=== PATIENT | female | born 1960 | race African-American/Black ===

== ENCOUNTER 2017-06-03 14:44 | Observation (INO) | payer OTHER ==
--- NOTE | 2017-06-03 15:16 | PDOC ---
History of Present Illness - General Chief Complaint: Syncope/Near Syncope Stated Complaint: Syncope/Near Syncope Time Seen by Provider: 06/03/17 14:54 History Source: Patient Exam Limitations: No Limitations - History of Present Illness Initial Comments: 06/03/17 15:56 Patient is a 57-year-old female with a past medical history of hyperlipidemia, GERD, insulin-dependent type 2 diabetes, coronary artery disease status post cardiac stenting in 2009 on Plavix who presents to the emergency department today after having a syncopal episode at her doctor's office. Patient states that she has had a sore throat since Friday. She finally went to see her doctor today when she got up to walk into the exam room she passed out. She was found to be hypotensive at that time approximately 78/50. Admits to fatigue, weakness. Fall was witnessed she did not hit her head. She denies headache, neck pain. Denies chest pain, palpitations, fevers, chills, frequency, urgency, hematuria, nausea, vomiting and diarrhea. Past History - Travel Traveled outside of the country in the last 30 days: Yes - Past Medical History Allergies/Adverse Reactions: Allergies Allergy/AdvReac Type Severity Reaction Status Date / Time lidocaine [Lidocaine] Allergy Verified 06/03/17 15:37 sumatriptan [From Imitrex] Allergy Verified 06/03/17 15:37 sumatriptan succinate Allergy Verified 06/03/17 15:37 [From Imitrex] novacaine Allergy Uncoded 06/03/17 15:37 Home Medications: Ambulatory Orders Atorvastatin Ca [Lipitor] 40 mg PO HS 06/03/17 Clonazepam [Klonopin -] 0.5 mg PO BID 06/03/17 Clopidogrel Bisulfate [Plavix -] 75 mg PO DAILY 06/03/17 Famotidine [Pepcid -] 20 mg PO BID 06/03/17 Fluticasone Prop 0.05% Nasal [Flonase -] 1 - 2 spray NS BID 06/03/17 Furosemide [Lasix] 20 mg PO DAILY 06/03/17 Insulin Glargine,Hum.rec.anlog [Lantus Solostar PEN -] 60 units SQ HS 06/03/17 Insulin Glulisine [Apidra Solostar] 25 unit SQ TID 06/03/17 Loratadine [Claritin] 10 mg PO DAILY 06/03/17 Montelukast Na [Singulair -] 10 mg PO HS 06/03/17 Ramipril [Altace] 5 mg PO DAILY 06/03/17 Sitagliptin Phosphate [Januvia] 100 mg PO DAILY 06/03/17 Trazodone HCl [Desyrel -] 50 mg PO HS 06/03/17 Cefuroxime Axetil [Ceftin -] 250 mg PO BID #10 tablet 06/04/17 Cardiac Disorders: Yes (cad) Diabetes: Yes (type II, IDDM) HTN: Yes - Surgical History Cardiac Surgery: Yes (cardiac stent 2009) - Psycho/Social/Smoking Cessation Hx Anxiety: Yes Suicidal Ideation: No Smoking Status: No Smoking History: Current every day smoker Number of Cigarettes Smoked Daily: 4 Information on smoking cessation initiated: No 'Breaking Loose' booklet given: 03/04/13 Hx Alcohol Use: Yes Drug/Substance Use Hx: Yes Substance Use Type: Alcohol, Marijuana Hx Substance Use Treatment: Yes (2001, [facility]) Review of Systems - Review of Systems Able to Perform ROS?: Yes Comments:: 06/03/17 15:59 CONSTITUTIONAL: Absent: fever, chills, diaphoresis, generalized weakness, malaise, loss of appetite HEENT: Absent: rhinorrhea, nasal congestion, throat pain, throat swelling, difficulty swallowing, mouth swelling, ear pain, eye pain, visual Changes CARDIOVASCULAR: Positive: Syncope, lightheadedness Absent: chest pain, palpitations, irregular heart rate, peripheral edema RESPIRATORY: Absent: cough, shortness of breath, dyspnea with exertion, orthopnea, wheezing, stridor, hemoptysis GASTROINTESTINAL: Absent: abdominal pain, abdominal distension, nausea, vomiting, diarrhea, constipation, melena, hematochezia GENITOURINARY: Absent: dysuria, frequency, urgency, hesitancy, hematuria, flank pain, genital pain MUSCULOSKELETAL: Absent: myalgia, arthralgia, joint swelling SKIN: Absent: rash, itching, pallor HEMATOLOGIC/IMMUNOLOGIC: Absent: easy bleeding, easy bruising, lymphadenopathy, frequent infections ENDOCRINE: Absent: unexplained weight gain, unexplained weight loss, heat intolerance, cold intolerance NEUROLOGIC: Absent: headache, focal weakness or paresthesias, dizziness, unsteady gait, seizure, mental status changes, bladder or bowel incontinence PSYCHIATRIC: Absent: anxiety, depression, suicidal or homicidal ideation, hallucinations. Is the patient limited Kinyarwanda proficient: No *Physical Exam - Vital Signs Last Vital Signs Temp Pulse Resp BP Pulse Ox 98 F 103 H 18 131/78 98 06/03/17 14:47 06/03/17 14:47 06/03/17 14:47 06/03/17 14:47 06/03/17 14:47 - Physical Exam Comments: 06/03/17 17:56 GENERAL: Well developed, well nourished laying on hospital bed. Awake alert and oriented x3. No acute distress, breathing easily. BP is 98/64 pulse 92 on monitor. HEENT: Normocephalic, atraumatic. PERRLA, EOMI. No conjunctival pallor. Sclera are non- icteric. Moist mucous membranes. Oropharynx with patchy exudates on the posterior pharynx and upper soft palate. TM's b/l are dull with a diminished cone of light. NECK: Supple. Full ROM. No JVD. Carotid pulses 2+ and symmetric, without bruits. No thyromegaly. No lymphadenopathy. CARDIOVASCULAR: Tachycardic, regular rhythm. No murmurs, rubs, or gallops. Distal pulses are 2+ and symmetric. PULMONARY: No evidence of respiratory distress. Lungs clear to auscultation bilaterally. No wheezing, rales or rhonchi. ABDOMINAL: Soft. Non-tender. Non-distended. No rebound or guarding. No organomegaly. Normoactive bowel sounds. MUSCULOSKELETAL Normal range of motion at all joints. No bony deformities or tenderness. No CVA tenderness. EXTREMITIES: No cyanosis. No clubbing. No edema. No calf tenderness. SKIN: Warm and dry. Normal capillary refill. No rashes. No jaundice. NEUROLOGICAL: Alert, awake, appropriate. Cranial nerves 2-12 intact. No deficits to light touch and temperature in face, upper extremities and lower extremities. No motor deficits in the in face, upper extremities and lower extremities. Normoreflexic in the upper and lower extremities. Normal speech. Toes are down- going bilaterally. Gait is normal without ataxia. PSYCHIATRIC: Cooperative. Good eye contact. Appropriate mood and affect. ED Treatment Course - LABORATORY CBC & Chemistry Diagram: 06/04/17 05:35 06/04/17 05:35 Medical Decision Making - Medical Decision Making 06/03/17 16:30 Patient is a 57-year-old female with a past medical history of hyperlipidemia, GERD, insulin-dependent type 2 diabetes, coronary artery disease status post cardiac stenting in 2009 on Plavix who presents to the emergency department today after having a syncopal episode at her doctor's office. Possible septic picture as pt states she has had sore throat for 5 days. Will start septic work up at this time. Pt. is denying chest pain, shortness of breath , abdominal pain , n/v/d. 1. CBC, CMP, Trop, lactic, blood cultures, UA, UC 2. Fluids 3. EKG 4. Re-evaluate 06/03/17 16:59 CBC shows WBC of 11. Lactic acid 2.2, UA positive for leuks, glucose and protein. Trop negative. Given hypotension and syncopal episode, will admit to obs [facility] for blood pressure monitoring and septic picture. Will give rocephin now. Will admit to [facility] 06/03/17 17:18 [facility] accepts the pt. *DC/Admit/Observation/Transfer Diagnosis at time of Disposition: Elevated lactic acid level UTI (urinary tract infection) Qualifiers: Urinary tract infection type: acute cystitis Hematuria presence: without hematuria Qualified Code(s): N30.00 - Acute cystitis without hematuria Syncope Qualifiers: Syncope type: unspecified Qualified Code(s): R55 - Syncope and collapse - Discharge Dispostion Disposition: HOME Condition at time of disposition: Stable Admit: Yes - Prescriptions - Referrals
[2017-06-03 15:38] LABS: URINE APPEARANCE CLEAR; URINE BILIRUBIN NEGATIVE (NEGATIVE); URINE BLOOD NEGATIVE (NEGATIVE); URINE COLOR YELLOW; URINE GLUCOSE (UA) 3+ (NEGATIVE); URINE KETONE NEGATIVE (NEGATIVE); URINE NITRITE NEGATIVE (NEGATIVE); URINE UROBILINOGEN 4.0 E.U/dl mg/dL (0.2-1.0)
[2017-06-03] MEDS ORDERED: SODIUM CHLORIDE 1,000 ML IV STA (15:43)
[2017-06-03 15:45] LABS: URINE LEUK ESTERASE 1+ (NEGATIVE); URINE PROTEIN 2+ (NEGATIVE)
[2017-06-03 15:56] LABS: URINE HYALINE CAST 43 /lpf; URINE MUCUS FEW; URINE RBC 1 /hpf (0-3); URINE WBC 21 /hpf (3-5)
[2017-06-03 16:10] LABS: VENOUS BLOOD GAS HCO3 30.4 meq/L (19-25); VENOUS PH 7.33 (7.32-7.42)
--- NOTE | 2017-06-03 16:41 | PDOC ---
Attending Attestation - Resident Resident Name: Ines Marcum - ED Attending Attestation I have performed the following: I have examined & evaluated the patient, The case was reviewed & discussed with the resident, I agree w/resident's findings & plan, Exceptions are as noted - HPI HPI: 06/03/17 19:08 57y F hx of HL, GERD, DM2, CAD s/p stent x 1 in 2009 presents with syncopal episode in setting of recent URI/Sore throat since friday. Pt syncopized when ambulating to the exam room in the doctors office, pt recalls no headache, cp, sob, palpitations, back pain, abd pain. Pt notes she has not been eating/ drinking much for the past 4 days, had ~1 bottle of water in 24 hrs and only approx 2 cans of chicken soup over the past few days. on exam pt had dry mucus membranes. abd soft nontender, posterior pharynx mildly erhtmeadous exam otherwise unremarkable pt on cardiac montior labs reviewed lactic acid slightly elevated to 2.2 suspect dehdration will placed in observation in telemetry - Physicial Exam PE: 06/04/17 08:20 see above - Medical Decision Making 06/04/17 08:20 see above
[2017-06-03 16:42] LABS: INR 0.98 (0.82-1.09); PROTHROMBIN TIME (PATIENT) 10.8 SEC (9.98-11.88)
[2017-06-03 16:44] LABS: ACTIVATED PTT 27.4 SECONDS (26.9-34.4)
[2017-06-03 16:45] LABS: BASOPHIL 0.6 % (0-2.0); EOSINOPHIL 0.6 % (0-4.5); MCH 31.6 pg (25.7-33.7); MCHC 32.7 g/dl (32.0-36.0); MEAN CELL VOLUME 96.6 fl (80-96); MEAN PLT VOLUME 8.5 fl (7.5-11.1); NEUTROPHILS 70.5 % (42.8-82.8); PLATELET COUNT 221 K/MM3 (134-434)
[2017-06-03 16:53] LABS: ALBUMIN 3.4 g/dl (3.4-5.0); ANION GAP 8 (8-16); CALCIUM 9.5 mg/dL (8.5-10.1); CO2 32 mmol/L (21-32); CREATININE 1.3 mg/dL (0.55-1.02); GLUCOSE,RANDOM 171 mg/dL (74-106); SGOT/AST 9 U/L (15-37); SGPT/ALT 14 U/L (12-78)
[2017-06-03 16:57] LABS: ALK PHOS 108 U/L (45-117); BILIRUBIN,TOTAL 0.8 mg/dL (0.2-1.0); TOT PROT 7.9 g/dl (6.4-8.2); TROPONIN I < 0.02 ng/ml (0.00-0.05)
[2017-06-03] MEDS ORDERED: SODIUM CHLORIDE 0.9% 1000 ML INFUS.BAG IV ONE (16:59)
[2017-06-03] MEDS ORDERED: CEFTRIAXONE 1 GM in DEXTROSE 5%-WATER - 50 ML IVPB ONE (17:42)
[2017-06-03] MEDS ORDERED: CEFTRIAXONE 50 ML ONE (17:52)
--- NOTE | 2017-06-03 18:29 | HP ---
CHIEF COMPLAINT: passed out PCP: HISTORY OF PRESENT ILLNESS: 57 y/o F with PMH of CAD, IDDM, recurrent UTI's, who presented to the ED after she passed out at her doctor's office this afternoon. As per patient, on , she had a sore throat with dysphagia and was unable to eat food and drink fluids. She could not eat until today due to this throat pain. Patient was going to her doctor today for a check-up, and suddenly felt "funny." She had a syncopal episode and was woken up by the office workers, at this time her BP was 78/50. Patient did not hit her head, had no witnessed tonic-clonic movements, no palpitations before the event, or any other symptoms. Pt felt confused afterward and nauseous, but did not vomit. She has not been able to take her insulin for a few days. During this time, patient has also had mild, 4/10 suprapubic pain. Patient states that this barely bothers her, and that she has recurrent UTI's which resolve with "cream" as given by her doctor. Denies SOB, headache, fever, chills, dysuria, chest pain, dizziness, blurred vision, melena, hemetemesis, hematochezia. Recent Travel: none PAST MEDICAL HISTORY: CAD, NIDDM, HTN, severe depression, anxiety, recurrent UTI 's PAST SURGICAL HISTORY: Cardiac stent 2009, hysterectomy 1998, Tubal ligation 1978, L carpal tunnel release, multiple breast surgeries for benign cysts Social History: Smoking: smokes 4 cigarettes daily for 32 years Alcohol: drinks socially Drugs: marijuana use Family History: Heart disease, hypertension, DM (mother, grandmother) Allergies lidocaine [Lidocaine] Allergy (Verified 06/03/17 15:37) sumatriptan [From Imitrex] Allergy (Verified 06/03/17 15:37) sumatriptan succinate [From Imitrex] Allergy (Verified 06/03/17 15:37) novacaine Allergy (Uncoded 06/03/17 15:37) -these medications give her laryngeal edema HOME MEDICATIONS: Home Medications Medication Instructions Recorded Atorvastatin Ca [Lipitor] 40 mg PO HS 06/03/17 Clonazepam [Klonopin -] 0.5 mg PO BID 06/03/17 Clopidogrel Bisulfate [Plavix -] 75 mg PO DAILY 06/03/17 Famotidine [Pepcid -] 20 mg PO BID 06/03/17 Fluticasone Prop 0.05% Nasal 1 - 2 spray NS BID 06/03/17 [Flonase -] Furosemide [Lasix] 20 mg PO DAILY 06/03/17 Insulin Glargine,Hum.rec.anlog 60 units SQ HS 06/03/17 [Lantus Solostar PEN (NF)] Insulin Glulisine [Apidra Solostar] 25 unit SQ TID 06/03/17 Loratadine [Claritin] 10 mg PO DAILY 06/03/17 Montelukast Na [Singulair -] 10 mg PO HS 06/03/17 Ramipril [Altace] 5 mg PO DAILY 06/03/17 Sitagliptin Phosphate [Januvia] 100 mg PO DAILY 06/03/17 Trazodone HCl [Desyrel -] 50 mg PO HS 06/03/17 REVIEW OF SYSTEMS CONSTITUTIONAL: Absent: fever, chills, diaphoresis, generalized weakness, malaise, loss of appetite, weight change HEENT: +throat pain Absent: rhinorrhea, nasal congestion, throat pain, throat swelling, difficulty swallowing, mouth swelling, ear pain, eye pain, visual changes CARDIOVASCULAR: Absent: chest pain, syncope, palpitations, irregular heart rate, lightheadedness , peripheral edema RESPIRATORY: Absent: cough, shortness of breath, dyspnea with exertion, orthopnea, wheezing, stridor, hemoptysis GASTROINTESTINAL: Absent: abdominal pain, abdominal distension, nausea, vomiting, diarrhea, constipation, melena, hematochezia GENITOURINARY: Absent: dysuria, frequency, urgency, hesitancy, hematuria, flank pain, genital pain MUSCULOSKELETAL: Absent: myalgia, arthralgia, joint swelling, back pain, neck pain SKIN: Absent: rash, itching, pallor HEMATOLOGIC/IMMUNOLOGIC: Absent: easy bleeding, easy bruising, lymphadenopathy, frequent infections ENDOCRINE: Absent: unexplained weight gain, unexplained weight loss, heat intolerance, cold intolerance NEUROLOGIC: Absent: headache, focal weakness or paresthesias, dizziness, unsteady gait, seizure, mental status changes, bladder or bowel incontinence PSYCHIATRIC: Absent: anxiety, depression, suicidal or homicidal ideation, hallucinations. PHYSICAL EXAMINATION Vital Signs - 24 hr 06/03/17 06/03/17 14:47 17:05 Temperature 98 F Pulse Rate 103 H Pulse Rate [ 92 H Left Radial] Respiratory 18 18 Rate Blood Pressure 131/78 Blood Pressure 116/66 [Right Arm] O2 Sat by Pulse 98 95 Oximetry (%) GENERAL: Awake, alert, and fully oriented, in no acute distress. HEAD: Normal with no signs of trauma. EYES: Pupils equal, round and reactive to light, extraocular movements intact, sclera anicteric. EARS, NOSE, THROAT: oropharynx exudate on the R. Moist mucous membranes. NECK: Normal range of motion, supple without lymphadenopathy, JVD, or masses. LUNGS: Breath sounds equal, clear to auscultation bilaterally. No wheezes, and no crackles. No accessory muscle use. HEART: Regular rate and rhythm, normal S1 and S2 without murmur, rub or gallop. ABDOMEN: Soft, mildly tender suprapubically, not distended, normoactive bowel sounds, no guarding, no rebound, no masses. No hepatomegaly or splenomegaly. MUSCULOSKELETAL: Normal range of motion at all joints. No bony deformities or tenderness. No CVA tenderness. UPPER EXTREMITIES: 2+ pulses, warm, well-perfused. No cyanosis. No clubbing. No peripheral edema. LOWER EXTREMITIES: 2+ pulses, warm, well-perfused. No calf tenderness. No peripheral edema. NEUROLOGICAL: Cranial nerves II-XII intact. Laboratory Results - last 24 hr 06/03/17 06/03/17 06/03/17 15:00 15:43 15:51 WBC 11.0 H RBC 4.51 Hgb 14.2 Hct 43.6 MCV 96.6 H MCH 31.6 MCHC 32.7 RDW 13.0 Plt Count 221 D MPV 8.5 Neutrophils % 70.5 Lymphocytes % 22.0 D Monocytes % 6.3 Eosinophils % 0.6 Basophils % 0.6 INR PTT (Actin FS) VBG pH 7.33 POC VBG pCO2 58.6 H POC VBG pO2 22.0 L Mixed VBG HCO3 30.4 H Sodium Potassium Chloride Carbon Dioxide Anion Gap BUN Creatinine Creat Clearance w eGFR Random Glucose Lactic Acid Calcium Total Bilirubin AST ALT Alkaline Phosphatase Creatine Kinase Troponin I Total Protein Albumin Urine Color Yellow Urine Appearance Clear Urine pH 6.0 Urine Protein 2+ H D Urine Glucose (UA) 3+ H Urine Ketones Negative Urine Blood Negative Urine Nitrite Negative Urine Bilirubin Negative Urine Urobilinogen 4.0 e.u/dl H Ur Leukocyte Esterase 1+ H Urine RBC 1 Urine WBC 21 Ur Epithelial Cells Rare Hyaline Casts 43 Urine Mucus Few 06/03/17 06/03/17 06/03/17 15:51 15:51 15:51 WBC RBC Hgb Hct MCV MCH MCHC RDW Plt Count MPV Neutrophils % Lymphocytes % Monocytes % Eosinophils % Basophils % INR 0.98 PTT (Actin FS) 27.4 VBG pH POC VBG pCO2 POC VBG pO2 Mixed VBG HCO3 Sodium 137 Potassium 4.0 Chloride 97 L Carbon Dioxide 32 Anion Gap 8 BUN 17 Creatinine 1.3 H D Creat Clearance w eGFR 41.92 Random Glucose 171 H D Lactic Acid 2.2 H* Calcium 9.5 Total Bilirubin 0.8 D AST 9 L ALT 14 Alkaline Phosphatase 108 Creatine Kinase 64 Troponin I < 0.02 Total Protein 7.9 Albumin 3.4 Urine Color Urine Appearance Urine pH Urine Protein Urine Glucose (UA) Urine Ketones Urine Blood Urine Nitrite Urine Bilirubin Urine Urobilinogen Ur Leukocyte Esterase Urine RBC Urine WBC Ur Epithelial Cells Hyaline Casts Urine Mucus ASSESSMENT/PLAN: 57 y/o F with PMH of CAD, IDDM, recurrent UTI's, who presented to the ED after she passed out at her doctor's office this afternoon. Pt admitted for syncope secondary to possible volume depletion, and UTI. 1. Syncope secondary to possible volume depletion -unable to drink fluids until today -low BP at time of syncope 78/50 -nausea after event -no palpitations before event -IVF 75 mls/hr (already received 3L bolus in ED) -check orthostatics -monitor CBC 2. Acute kidney injury -likely pre-renal secondary to vol depletion -Cr 1.3 -Most recent Cr: 0.6 -Will trend Cr, should improve with fluid resuscitation 3. UTI -Urine culture pending -Rocephin 1 gram daily 4. Lactic acidosis -likely secondary to vol depletion and decreased perfusion to organs -Lactate- pending 5. IDDM -Insulin novolog sliding scale -Monitor blood glucose -hold insulin glargine, januvia (sitagliptin) while in-patient -check HbA1c 6. HTN- controlled -Hold ramipril for now, given recent hypotension and volume depleted -Hold lasix - given recent hypotension and vol depleted 7. CAD -continue plavix as patient has stents 75 mg PO daily -continue atorvastatin 40 mg PO daily 8. Depression/anxiety - continue Trazodone 50 mg PO BID -hold clonapin for now given syncope 9. Hyperlipidemia -continue atorvastatin 40 mg PO daily 10. Leukocytosis -stress reaction vs. UTI F/E/N -IV NS 75 mls/hr -No electrolyte issues -Will monitor -Diabetic diet Prophylaxis Heparin 5000 units BID SQ SCD's bilateral Pepcid Early ambulation Will consider PT consult if needed Case discussed with senior resident and attending. Visit type - Emergency Visit Emergency Visit: Yes ED Registration Date: 06/03/17 Care time: The patient presented to the Emergency Department on the above date and was hospitalized for further evaluation of their emergent condition. - New Patient This patient is new to me today: Yes Date on this admission: 06/03/17 - Critical Care Critical Care patient: No
--- NOTE | 2017-06-03 19:32 | HP ---
Admitting History and Physical - Primary Care Physician PCP: Marisol Castillo - Admission Chief Complaint: Syncope History of Present Illness: 57 y/o F with PMH of CAD, IDDM, recurrent UTI's, who presented to the ED after she passed out at her doctor's office this afternoon. Patient has had a sore throat since and has not been having any PO intake since then. She went to her PMDs office and she ""passed out on the floor". She denies trauma or hitting her head. She denies loss of bowel or bladder function. She denies vomiting fevers chills chest pain or shortness of breath. She does endorse nausea but no vomiting. She has not been able to take her insulin for a few days. Denies SOB, headache, fever, chills, dysuria, chest pain, dizziness, blurred vision, melena, hemetemesis, hematochezia. - Smoking History Smoking history: Current every day smoker Aproximately how many cigarettes per day: 4 - Alcohol/Substance Use Hx Alcohol Use: Yes Home Medications - Allergies Allergies/Adverse Reactions: Allergies Allergy/AdvReac Type Severity Reaction Status Date / Time lidocaine [Lidocaine] Allergy Verified 06/03/17 15:37 sumatriptan [From Imitrex] Allergy Verified 06/03/17 15:37 sumatriptan succinate Allergy Verified 06/03/17 15:37 [From Imitrex] novacaine Allergy Uncoded 06/03/17 15:37 - Home Medications Home Medications: Ambulatory Orders Atorvastatin Ca [Lipitor] 40 mg PO HS 06/03/17 Clonazepam [Klonopin -] 0.5 mg PO BID 06/03/17 Clopidogrel Bisulfate [Plavix -] 75 mg PO DAILY 06/03/17 Famotidine [Pepcid -] 20 mg PO BID 06/03/17 Fluticasone Prop 0.05% Nasal [Flonase -] 1 - 2 spray NS BID 06/03/17 Furosemide [Lasix] 20 mg PO DAILY 06/03/17 Insulin Glargine,Hum.rec.anlog [Lantus Solostar PEN (NF)] 60 units SQ HS Insulin Glulisine [Apidra Solostar] 25 unit SQ TID 06/03/17 Loratadine [Claritin] 10 mg PO DAILY 06/03/17 Montelukast Na [Singulair -] 10 mg PO HS 06/03/17 Ramipril [Altace] 5 mg PO DAILY 06/03/17 Sitagliptin Phosphate [Januvia] 100 mg PO DAILY 06/03/17 Trazodone HCl [Desyrel -] 50 mg PO HS 06/03/17 Review of Systems Findings/Remarks: ROS positive for: Syncope throat soreness syncope dysphagia - Review of Systems Constitutional: reports: No Symptoms Eyes: reports: No Symptoms HENT: reports: No Symptoms Neck: reports: No Symptoms Cardiovascular: reports: No Symptoms Respiratory: reports: No Symptoms Neurological: reports: Confusion, Syncope Endocrine: reports: No Symptoms Hematology/Lymphatic: reports: No Symptoms Psychiatric: reports: Anxiety, Depression Physical Examination Vital Signs: Vital Signs Temperature 98 F 06/03/17 14:47 Pulse Rate 92 H 06/03/17 17:05 Respiratory Rate 18 06/03/17 17:05 Blood Pressure 116/66 06/03/17 17:05 O2 Sat by Pulse Oximetry (%) 95 06/03/17 17:05 Constitutional: Yes: Well Nourished, No Distress, Calm Eyes: Yes: Conjunctiva Clear, EOM Intact HENT: Yes: Atraumatic, Normocephalic, Other (Very dry mucos membranes) Neck: Yes: Supple, Trachea Midline Cardiovascular: Yes: Regular Rate and Rhythm, S1, S2. No: Murmur, Rub Respiratory: Yes: Regular, CTA Bilaterally Gastrointestinal: Yes: Normal Bowel Sounds, Soft, Other (slight suprapubic tenderness) Edema: No Integumentary: Yes: WNL ...Motor Strength: WNL Psychiatric: Yes: Alert, Oriented Labs: CBC, BMP 06/03/17 15:51 06/03/17 15:51 Imaging - Results Chest X-ray: Image Reviewed Assessment/Plan 57 y/o F with PMH of CAD, IDDM, recurrent UTI's, who presented to the ED after she passed out at her doctor's office this afternoon. Pt admitted for syncope secondary to possible volume depletion, and UTI. Problem list: Syncope MYA volume depletion UTI Lactic acidosis DM HTN CAD Anxiety/depression HLD Mild leukocystosis Plan: IVF Trend CBC Trend Cr Rocephin Trend Lactate ISS BGM ACHS Hold antihypertensives continue plavix continue lipitor continue trazadone Hold Klonopin orthostatics Case discussed with attending and medical team. Full H&P to follow Visit type - Emergency Visit Emergency Visit: Yes ED Registration Date: 06/03/17 Care time: The patient presented to the Emergency Department on the above date and was hospitalized for further evaluation of their emergent condition. - New Patient This patient is new to me today: Yes Date on this admission: 06/03/17 - Critical Care Critical Care patient: No
[2017-06-03] MEDS ORDERED: SODIUM CHLORIDE 1,000 ML IV SCH (20:00)
[2017-06-03 21:00] VITALS: BMI 33.7
--- NOTE | 2017-06-03 21:36 | PN ---
Teaching Attending Note Name of Resident: Dianne Rodriguez ATTENDING PHYSICIAN STATEMENT I saw and evaluated the patient. I reviewed the resident's note and discussed the case with the resident. I agree with the resident's findings and plan as documented. SUBJECTIVE: 57 year old female presenting post episode of syncope and LOC . No seizures . No trauma. ROS significant for 3 day history of sore throat and inability to tolerate PO due to pain OBJECTIVE: Vital Signs Temperature 97.6 F 06/03/17 21:18 Pulse Rate 90 06/03/17 21:21 Respiratory Rate 18 06/03/17 21:18 Blood Pressure 132/78 06/03/17 21:21 O2 Sat by Pulse Oximetry (%) 98 06/03/17 21:00 ABD soft , suprapubic tenderness RS CTA b/l HEENT - positive for tonsillar exudate CBC, BMP 06/03/17 15:51 06/03/17 15:51 Urine Test Results Urine Color Yellow 06/03/17 15:00 Urine Appearance Clear 06/03/17 15:00 Urine pH 6.0 (5.0-8.0) 06/03/17 15:00 Ur Specific [place] 1.020 (1.005-1.025) 06/03/17 15:00 Urine Protein 2+ (NEGATIVE) H D 06/03/17 15:00 Urine Glucose (UA) 3+ (NEGATIVE) H 06/03/17 15:00 Urine Ketones Negative (NEGATIVE) 06/03/17 15:00 Urine Blood Negative (NEGATIVE) 06/03/17 15:00 Urine Nitrite Negative (NEGATIVE) 06/03/17 15:00 Urine Bilirubin Negative (NEGATIVE) 06/03/17 15:00 Ur Leukocyte Esterase 1+ (NEGATIVE) H 06/03/17 15:00 Urine RBC 1 /hpf (0-3) 06/03/17 15:00 Urine WBC 21 /hpf (3-5) 06/03/17 15:00 Ur Epithelial Cells Rare /hpf (FEW) 06/03/17 15:00 Urine Mucus Few 06/03/17 15:00 ASSESSMENT AND PLAN: 1. Syncope - secondary to dehydration 2. Tonsillitis 3. Acute renal insufficiency secondary to dehydration 4. 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
[2017-06-03] MEDS ORDERED: ATORVASTATIN CA 40 MG TABLET (FP) PO SCH (22:00)
[2017-06-03] MEDS ORDERED: traZODone HCL 50 MG TABLET (FP) PO SCH (22:00)
[2017-06-03] MEDS ORDERED: MONTELUKAST NA 10 MG TABLET PO SCH (22:00)
[2017-06-03] MEDS: HEPARIN NA (PORCINE) 5,000 UNITS/ML 1ML VIAL SQ SCH (22:26)
[2017-06-03] MEDS: RANITIDINE HCL 150 MG TABLET (FP) PO SCH (22:26)
[2017-06-03] MEDS: INSULIN SLIDING SCALE (NOVOLOG) 1 VIAL SQ SCH (22:27)
[2017-06-03] MEDS: FLUTICASONE PROP 0.05% 16 GM NASAL SPRAY NS SCH (22:37)
[2017-06-03] MEDS ORDERED: ACETAMINOPHEN 325 MG TABLET (FP) PO ONE (23:22)
[2017-06-04] MEDS ORDERED: ACETAMINOPHEN 325 MG TABLET (FP) PO ONE (05:05)
[2017-06-04] MEDS: INSULIN SLIDING SCALE (NOVOLOG) 1 VIAL SQ SCH (05:59)
[2017-06-04 07:23] LABS: MCH 32.5 pg (25.7-33.7); MCHC 33.7 g/dl (32.0-36.0); MEAN CELL VOLUME 96.5 fl (80-96); MEAN PLT VOLUME 8.6 fl (7.5-11.1); PLATELET COUNT 195 K/MM3 (134-434); WHITE BLOOD COUNT 10.2 K/mm3 (4.0-10.0)
[2017-06-04 07:51] LABS: ANION GAP 7 (8-16); CALCIUM 8.7 mg/dL (8.5-10.1); CO2 29 mmol/L (21-32); CREATININE 0.8 mg/dL (0.55-1.02); GLUCOSE,RANDOM 177 mg/dL (74-106)
[2017-06-04] MEDS: FLUTICASONE PROP 0.05% 16 GM NASAL SPRAY NS SCH (09:34)
[2017-06-04] MEDS: RANITIDINE HCL 150 MG TABLET (FP) PO SCH (09:36)
[2017-06-04] MEDS: HEPARIN NA (PORCINE) 5,000 UNITS/ML 1ML VIAL SQ SCH (09:36)
[2017-06-04] MEDS ORDERED: cefTRIAXone 1 GM/50 ML BAG (PRE-DOCKED) IVPB SCH (10:00)
[2017-06-04] MEDS ORDERED: CLOPIDOGREL BISULFATE 75 MG TABLET (FP) PO SCH (10:00)
[2017-06-04] MEDS ORDERED: LORATADINE 10 MG TABLET PO SCH (10:00)
--- NOTE | 2017-06-04 10:31 | DS ---
Physical Exam: SUBJECTIVE: Patient seen and examined at bedside today. Pt states that she is not feeling lightheaded this morning. She endorses R post-auricular pain ever since last night. However, pain is 4/10. Pt denies chest pain, SOB, suprapubic tenderness. OBJECTIVE: Vital Signs Period Temp Pulse Resp BP Sys/Ortiz Pulse Ox Last 24 Hr 97.6 F-98.7 F 87-98 16-18 116-132/51-88 96-98 PHYSICAL EXAM GENERAL: The patient is awake, alert, and fully oriented, in no acute distress. HEAD: Normal with no signs of trauma. EYES: PERRL, extraocular movements intact, sclera anicteric, conjunctiva clear. ENT: Mildly tender to palpation R postauricular area, no pain R lobule, oropharynx mildly erythematous NECK: Trachea midline, supple LUNGS: Breath sounds equal, clear to auscultation bilaterally, no wheezes, no crackles, no accessory muscle use. HEART: Regular rate and rhythm, S1, S2 without murmur, rub or gallop. ABDOMEN: Soft, nontender, nondistended, normoactive bowel sounds, no guarding, no rebound EXTREMITIES: 2+ posterior tibial pulses, warm, well-perfused, no edema. NEUROLOGICAL: Cranial nerves II through XII grossly intact. LABS 06/03/17 06/03/17 06/03/17 15:00 15:43 15:51 WBC 11.0 H MCV 96.6 H INR PTT (Actin FS) POC VBG pCO2 58.6 H POC VBG pO2 22.0 L Mixed VBG HCO3 30.4 H BUN Creatinine Random Glucose Lactic Acid Urine Protein 2+ H D Urine Glucose (UA) 3+ H Urine Urobilinogen 4.0 e.u/dl H Ur Leukocyte Esterase 1+ H 06/03/17 06/03/17 06/03/17 15:51 15:51 15:51 WBC MCV INR 0.98 PTT (Actin FS) 27.4 POC VBG pCO2 POC VBG pO2 Mixed VBG HCO3 BUN 17 Creatinine 1.3 H D Random Glucose 171 H D Lactic Acid 2.2 H* Urine Protein Urine Glucose (UA) Urine Urobilinogen Ur Leukocyte Esterase 06/03/17 06/04/17 06/04/17 18:23 05:35 05:35 WBC 10.2 H MCV 96.5 H INR PTT (Actin FS) POC VBG pCO2 POC VBG pO2 Mixed VBG HCO3 BUN 14 Creatinine 0.8 D Random Glucose 177 H Lactic Acid 1.9 Urine Protein Urine Glucose (UA) Urine Urobilinogen Ur Leukocyte Esterase Microbiology 06/03/2017 Throat culture: negative HOSPITAL COURSE: Date of Admission:06/03/17 Date of Discharge: 06/04/17 Admit diagnosis: syncope secondary to volume depletion Pre-admission course 57 y/o F with PMH of CAD, IDDM, recurrent UTI's, who presented to the ED after she passed out at her doctor's office this afternoon. As per patient, on , she had a sore throat with dysphagia and was unable to eat food and drink fluids. She could not eat until today due to this throat pain. Patient was going to her doctor today for a check-up, and suddenly felt "funny." She had a syncopal episode and was woken up by the office workers, at this time her BP was 78/50. Patient did not hit her head, had no witnessed tonic-clonic movements, no palpitations before the event, or any other symptoms. Pt felt confused afterward and nauseous, but did not vomit. She has not been able to take her insulin for a few days. During this time, patient has also had mild, 4/10 suprapubic pain. Patient states that this barely bothers her, and that she has recurrent UTI's which resolve with "cream" as given by her doctor. Denies SOB, headache, fever, chills, dysuria, chest pain, dizziness, blurred vision, melena, hemetemesis, hematochezia. In ED, patient was given rocephin 1 gram IVPB and hydrated with IV NS. Hospital course When she was on the floor, patient's volume depletion was addressed from her syncopal episode. As she was unable to drink water during the week due to dysphagia from her throat pain, she was placed on IV NS. Throat culture was also ordered, and came back negative, however patient was on Rocephin for possible throat infection and will take Ceftin in its place upon discharge. She will complete a 7 day course of Ceftin 250mg PO BID. For the patient's UTI, symptoms were mild and subsided throughout the 1 day course of her hospitalization- her mild suprapubic pain dissipated. Minutes to complete discharge: 32 Discharge Summary Reason For Visit: URINARY TRACT INFECTION; SYNCOPE Current Active Problems Elevated lactic acid level (Acute) Syncope (Acute) UTI (urinary tract infection) (Acute) Condition: Stable - Instructions Diet, Activity, Other Instructions: You were recently in the hospital for passing out. Please drink plenty of fluids to stay hydrated. You are also being started on antibiotics for a throat infection. Please take Ceftin 250mg antibiotic twice daily by mouth for 5 more days, starting tomorrow- 06/05/17. (until 06/09/17) You may resume your other home medications. Please also follow-up with your primary care doctor at the end of the week. If you have any chest pain, shortness of breath, or any new complaints, please go to the hospital. Referrals: Marisol Castillo MD [Primary Care Provider] - Disposition: HOME - Home Medications Comprehensive Discharge Medication List: Ambulatory Orders Atorvastatin Ca [Lipitor] 40 mg PO HS 06/03/17 Clonazepam [Klonopin -] 0.5 mg PO BID 06/03/17 Clopidogrel Bisulfate [Plavix -] 75 mg PO DAILY 06/03/17 Famotidine [Pepcid -] 20 mg PO BID 06/03/17 Fluticasone Prop 0.05% Nasal [Flonase -] 1 - 2 spray NS BID 06/03/17 Furosemide [Lasix] 20 mg PO DAILY 06/03/17 Insulin Glargine,Hum.rec.anlog [Lantus Solostar PEN -] 60 units SQ HS 06/03/17 Insulin Glulisine [Apidra Solostar] 25 unit SQ TID 06/03/17 Loratadine [Claritin] 10 mg PO DAILY 06/03/17 Montelukast Na [Singulair -] 10 mg PO HS 06/03/17 Ramipril [Altace] 5 mg PO DAILY 06/03/17 Sitagliptin Phosphate [Januvia] 100 mg PO DAILY 06/03/17 Trazodone HCl [Desyrel -] 50 mg PO HS 06/03/17 Cefuroxime Axetil [Ceftin -] 250 mg PO BID #10 tablet 06/04/17 This patient is new to me today: No Emergency Visit: No Critical Care patient: No - Discharge Referral Referred to [facility] No
[2017-06-04 10:44] VITALS: BP 128/76; PULSE 88; TEMP 98
--- NOTE | 2017-06-04 11:15 | EKG ---
Test Reason : Blood Pressure : / mmHG Vent. Rate : 098 BPM Atrial Rate : 098 BPM P-R Int : 124 ms QRS Dur : 094 ms QT Int : 378 ms P-R-T Axes : 043 -03 064 degrees QTc Int : 482 ms NORMAL SINUS RHYTHM POSSIBLE LEFT ATRIAL ENLARGEMENT PROLONGED QT ABNORMAL ECG WHEN COMPARED WITH ECG OF 07-MAR-2011 13:17, NO SIGNIFICANT CHANGE WAS FOUND Confirmed by MICHEL RAY, KAYY ([id number]) on 06/04/2017 11:14:50 AM Referred By: Confirmed By:KAYY PEARSON MD
--- NOTE | 2017-06-04 13:34 | PN ---
Teaching Attending Note Name of Resident: Dianne Rodriguez ATTENDING PHYSICIAN STATEMENT I saw and evaluated the patient. I reviewed the resident's note and discussed the case with the resident. I agree with the resident's findings and plan as documented. SUBJECTIVE: OBJECTIVE: Vital Signs Period Temp Pulse Resp BP Sys/Ortiz Pulse Ox Last 24 Hr 97.6 F-98.7 F 87-103 16-18 116-132/51-88 95-98 ASSESSMENT AND PLAN:
== END 2017-06-04 11:37 | disposition home or self-care (01) ==
LOC: JER 14:44 → JERBED 18:05 → J4W 20:31
PROVIDERS: ADMIT Internal Medicine; ATTEND Internal Medicine
PROC: 3E03329 Introduction of Other Anti-infective into Peripheral Vein, Percutaneous Approach (ICD-10-PCS; principal; 2017-06-03)
PROC: 3E01329 Introduction of Other Anti-infective into Subcutaneous Tissue, Percutaneous Approach (ICD-10-PCS; 2017-06-03)
PROC: 3E0337Z Introduction of Electrolytic and Water Balance Substance into Peripheral Vein, Percutaneous Approach (ICD-10-PCS; 2017-06-03)
DX: N30.00 Acute cystitis without hematuria (principal); E86.0 Dehydration; R55 Syncope and collapse; R74.0 Nonspecific elevation of levels of transaminase and lactic acid dehydrogenase [LDH]; N17.9 Acute kidney failure, unspecified; E87.2 Acidosis; I10 Essential (primary) hypertension; I25.10 Atherosclerotic heart disease of native coronary artery without angina pectoris; E78.5 Hyperlipidemia, unspecified; K21.9 Gastro-esophageal reflux disease without esophagitis; E11.9 Type 2 diabetes mellitus without complications; F17.210 Nicotine dependence, cigarettes, uncomplicated; Z79.4 Long term (current) use of insulin; Z95.5 Presence of coronary angioplasty implant and graft; Z79.01 Long term (current) use of anticoagulants; F41.9 Anxiety disorder, unspecified; F32.9 Major depressive disorder, single episode, unspecified; D72.829 Elevated white blood cell count, unspecified
CPT/HCPCS: 36415; 71010-TC; 80048; 80053; 81003; 81015; 82550; 82803; 83605; 83735; 84100; 84484; 85025; 85027; 85610; 85730; 87040; 87070; 87086; 87430; 93005; 93010; 96361; 96365; 96372; 96375; 99285-25; G0378; J1644

== ENCOUNTER 2017-10-14 22:02 | Emergency (ER) | payer OTHER ==
[2017-10-14 22:14] VITALS: BP 148/93; PULSE 108; TEMP 98.8; BMI 31.7
--- NOTE | 2017-10-14 22:16 | PDOC ---
Rapid Medical Evaluation Chief Complaint: Syncope/Near Syncope Time Seen by Provider: 10/14/17 22:11 Medical Evaluation: Allergies Allergy/AdvReac Type Severity Reaction Status Date / Time lidocaine [Lidocaine] Allergy Verified 06/03/17 15:37 sumatriptan [From Imitrex] Allergy Verified 06/03/17 15:37 sumatriptan succinate Allergy Verified 06/03/17 15:37 [From Imitrex] novacaine Allergy Uncoded 06/03/17 15:37 10/14/17 22:11 I have performed a brief in-person evaluation of this patient. The patient presents with a chief complaint of: Dizziness, Syncope x 2 weeks. Pertinent physical exam findings: none. I have ordered the following: n/a The patient will proceed to the ED for further evaluation Discharge Disposition - Referrals Referrals: Lizy Smalls PA [Primary Care Provider] - - Patient Instructions - Post Discharge Activity
[2017-10-15] MEDS ORDERED: MECLIZINE HCL 25 MG TABLET (FP) PO STA (01:12)
--- NOTE | 2017-10-15 01:13 | PDOC ---
History of Present Illness - General History Source: Patient <Ean Rogel - Last Filed: 10/15/17 02:23> - General History Source: Patient - History of Present Illness Initial Comments: 10/15/17 01:26 The patient is a 57 yo F, with a significant past medical history of hyperlipidemia, GERD, insulin-dependent type 2 diabetes, coronary artery disease status post cardiac stenting in 2009 on Plavix who presents to the emergency department with 2 weeks of dizziness, generalized weakness and unsteady gait. The patient reports her dizziness as room spinning and states she has passed out a couple which reportedly caused the patient to pass out a couple of times. She reportedly passed out prior to presentation, but denies losing consciousness or blacking out. She describes her passing out as being weak and unsteady. She reports a few episodes of nausea and vomiting associated with her dizziness. She states she is compliant with her medication. She denies experiencing this before. She denies sick contacts or recent travels. She denies chest pain, shortness of breath, headache. She denies fever, chills, diarrhea and constipation. She denies dysuria, frequency, urgency and hematuria. Allergies: lidocaine, sumatriptan, novacaine <Linda Buitrago - Last Filed: 10/15/17 02:25> - General Chief Complaint: Syncope/Near Syncope Stated Complaint: DIZZINESS, fainting Time Seen by Provider: 10/14/17 22:11 Past History - Past Medical History Anemia: Yes Asthma: No Cancer: No Cardiac Disorders: Yes (cad) CVA: No COPD: Yes CHF: No Dementia: No Diabetes: Yes (type II, IDDM) GI Disorders: Yes (ACID REFLUX/ULCER) Disorders: No HTN: Yes Hypercholesterolemia: Yes Liver Disease: No Seizures: Yes (LAST ONE 30 YRS AGO) Thyroid Disease: No - Surgical History Abdominal Surgery: No Appendectomy: No Cardiac Surgery: Yes (cardiac stent 2009) Cholecystectomy: No Lung Surgery: No Neurologic Surgery: No Orthopedic Surgery: No - Suicide/Smoking/Psychosocial Hx Smoking Status: No Smoking History: Current every day smoker Have you smoked in the past 12 months: Yes Number of Cigarettes Smoked Daily: 10 Information on smoking cessation initiated: No 'Breaking Loose' booklet given: 03/04/13 Hx Alcohol Use: No Drug/Substance Use Hx: No Substance Use Type: Alcohol, Marijuana Hx Substance Use Treatment: Yes (2000, [facility]) <Ean Rogel - Last Filed: 10/15/17 02:23> <Linda Buitrago - Last Filed: 10/15/17 02:25> - Past Medical History Allergies/Adverse Reactions: Allergies Allergy/AdvReac Type Severity Reaction Status Date / Time lidocaine [Lidocaine] Allergy Verified 06/03/17 15:37 sumatriptan [From Imitrex] Allergy Verified 06/03/17 15:37 sumatriptan succinate Allergy Verified 06/03/17 15:37 [From Imitrex] novacaine Allergy Uncoded 06/03/17 15:37 Home Medications: Ambulatory Orders Atorvastatin Ca [Lipitor] 40 mg PO HS 06/03/17 Clonazepam [Klonopin -] 0.5 mg PO BID 06/03/17 Clopidogrel Bisulfate [Plavix -] 75 mg PO DAILY 06/03/17 Famotidine [Pepcid -] 20 mg PO BID 06/03/17 Fluticasone Prop 0.05% Nasal [Flonase -] 1 - 2 spray NS BID 06/03/17 Furosemide [Lasix] 20 mg PO DAILY 06/03/17 Insulin Glargine,Hum.rec.anlog [Lantus Solostar PEN -] 60 units SQ HS 06/03/17 Insulin Glulisine [Apidra Solostar] 25 unit SQ TID 06/03/17 Loratadine [Claritin] 10 mg PO DAILY 06/03/17 Montelukast Na [Singulair -] 10 mg PO HS 06/03/17 Ramipril [Altace] 5 mg PO DAILY 06/03/17 Sitagliptin Phosphate [Januvia] 100 mg PO DAILY 06/03/17 Trazodone HCl [Desyrel -] 50 mg PO HS 06/03/17 Cefuroxime Axetil [Ceftin -] 250 mg PO BID #10 tablet 06/04/17 Meclizine HCl 25 mg PO TID #60 tablet 10/15/17 Review of Systems - Review of Systems Able to Perform ROS?: Yes Comments:: 10/15/17 01:28 CONSTITUTIONAL: (+) generalized weakness, Absent: fever, chills, diaphoresis, malaise, loss of appetite HEENT: Absent: rhinorrhea, nasal congestion, throat pain, throat swelling, difficulty swallowing, mouth swelling, ear pain, eye pain, visual Changes CARDIOVASCULAR: Absent: chest pain, syncope, palpitations, irregular heart rate, lightheadedness , peripheral edema RESPIRATORY: Absent: cough, shortness of breath, dyspnea with exertion, orthopnea, wheezing, stridor, hemoptysis GASTROINTESTINAL: (+) nausea, vomiting, Absent: abdominal pain, abdominal distension,diarrhea, constipation, melena, hematochezia GENITOURINARY: Absent: dysuria, frequency, urgency, hesitancy, hematuria, flank pain, genital pain MUSCULOSKELETAL: Absent: myalgia, arthralgia, joint swelling SKIN: Absent: rash, itching, pallor HEMATOLOGIC/IMMUNOLOGIC: Absent: easy bleeding, easy bruising, lymphadenopathy, frequent infections ENDOCRINE: Absent: unexplained weight gain, unexplained weight loss, heat intolerance, cold intolerance NEUROLOGIC: (+) dizziness, unsteady gait, Absent: headache, focal weakness or paresthesias, seizure, mental status changes, bladder or bowel incontinence PSYCHIATRIC: Absent: anxiety, depression, suicidal or homicidal ideation, hallucinations. <Linda Buitrago - Last Filed: 10/15/17 02:25> *Physical Exam - Vital Signs Last Vital Signs Temp Pulse Resp BP Pulse Ox 98.8 F 108 H 20 148/93 99 10/14/17 22:07 10/14/17 22:07 10/14/17 22:07 10/14/17 22:07 10/14/17 22:07 <Ean Rogel - Last Filed: 10/15/17 02:23> - Vital Signs Last Vital Signs Temp Pulse Resp BP Pulse Ox 98.8 F 108 H 20 148/93 99 10/14/17 22:07 10/14/17 22:07 10/14/17 22:07 10/14/17 22:07 10/14/17 22:07 - Physical Exam Comments: 10/15/17 01:30 GENERAL: Well developed, well nourished. Awake and alert. No acute distress. HEENT: Normocephalic, atraumatic. PERRLA, EOMI. No conjunctival pallor. Sclera are non- icteric. Moist mucous membranes. Oropharynx is clear. NECK: Supple. Full ROM. No JVD. Carotid pulses 2+ and symmetric, without bruits. No thyromegaly. No lymphadenopathy. CARDIOVASCULAR: Regular rate and rhythm. No murmurs, rubs, or gallops. Distal pulses are 2+ and symmetric. PULMONARY: No evidence of respiratory distress. Lungs clear to auscultation bilaterally. No wheezing, rales or rhonchi. ABDOMINAL: Soft. Non-tender. Non-distended. No rebound or guarding. No organomegaly. Normoactive bowel sounds. MUSCULOSKELETAL Normal range of motion at all joints. No bony deformities or tenderness. No CVA tenderness. EXTREMITIES: No cyanosis. No clubbing. No edema. No calf tenderness. SKIN: Warm and dry. Normal capillary refill. No rashes. No jaundice. NEUROLOGICAL: Alert, awake, appropriate. Cranial nerves 2-12 intact. Normoreflexic in the upper and lower extremities. Normal speech. Toes are down-going bilaterally. Gait is normal without ataxia. PSYCHIATRIC: Cooperative. Good eye contact. Appropriate mood and affect. <Linda Buitrago - Last Filed: 10/15/17 02:25> ED Treatment Course - RADIOLOGY Radiograph Interpretation: EXAM: CT HEAD without contrast HISTORY: Syncope and dizziness COMPARISON: None. FINDINGS: The ventricular system is midline and nondilated. The sulcal pattern is normal for the patient's age. There is no bleed, mass, extra-axial fluid collection or mass effect. There is a partially empty sella. No skull fracture or skull lesion is identified. The visualized paranasal sinuses and mastoid air cells are clear. IMPRESSION: No evidence of acute pathology. Partially empty sella. Ross Chong MD 10/15/2017 01:50 EST <Linda Buitrago - Last Filed: 10/15/17 02:25> *DC/Admit/Observation/Transfer - Discharge Dispostion Admit: No <Ean Rogel - Last Filed: 10/15/17 02:23> - Attestations Scribe Attestion: 10/15/17 01:30 Documentation prepared by Linda Buitrago, acting as medical care manager for Ean Rogel DO <Linda Buitrago - Last Filed: 10/15/17 02:25> Diagnosis at time of Disposition: Vertigo - Discharge Dispostion Disposition: HOME - Prescriptions Prescriptions: Meclizine HCl 25 mg PO TID #60 tablet - Referrals Referrals: Lizy Smalls PA [Physician Home Care Assistant] - Av Pack MD [Staff Physician] - - Patient Instructions Printed Discharge Instructions: DI for Vertigo Additional Instructions: take medication as directed. Return if any problems. Follow up with Neurology if symptoms despite using Meclizine - Post Discharge Activity
[2017-10-15] MEDS ORDERED: MECLIZINE HCL 25 MG TABLET (FP) ONE (01:52)
== END 2017-10-15 02:29 | disposition home or self-care (01) ==
LOC: JER 22:02
DX: R42 Dizziness and giddiness (principal); I25.10 Atherosclerotic heart disease of native coronary artery without angina pectoris; I10 Essential (primary) hypertension; Z95.5 Presence of coronary angioplasty implant and graft; E11.9 Type 2 diabetes mellitus without complications; Z79.4 Long term (current) use of insulin; E78.00 Pure hypercholesterolemia, unspecified; K21.9 Gastro-esophageal reflux disease without esophagitis; F17.210 Nicotine dependence, cigarettes, uncomplicated; Z86.69 Personal history of other diseases of the nervous system and sense organs
CPT/HCPCS: 70450-TC; 71020-TC; 99281-25